=== PATIENT | male | born 1950 | race Caucasian/White ===

== ENCOUNTER 2017-06-30 09:19 | Emergency (ER) | payer OTHER ==
[2017-06-30 09:44] VITALS: BP 129/77
--- NOTE | 2017-06-30 10:21 | UC ---
Throat Pain/Nasal Josh HPI - HPI Summary HPI Summary: 66 y/o female presents to the urgent care c/o sinus pressure, nasal congestion w/ yellowish nasal discharge and B/L ear pressure for the past 3 weeks. Pt reports symptoms started w/ the common cold and for the past 3 days has worsen. Now he has MARTINEZ, sinus pain and a dry cough that is not allowing him to sleep.. Pain is 5/10 w/ severe sinus pressure and +PND. Pt has taken OTC meds to alleviate symptoms w/o any improvement. Pt denies SOB, chest pain, abdominal pain, N/V/D - History of Current Complaint Chief Complaint: UCGeneralIllness Stated Complaint: SINUS ISSUE COUGH EAR PLUGGED Time Seen by Provider: 06/30/17 10:06 Hx Obtained From: Patient Onset/Duration: Lasting Weeks - 3 weeks, Still Present, Worse Since - 4 days Severity: Moderate Pain Intensity: 5 Pain Scale Used: 0-10 Numeric Cough: Nonproductive - dry Associated Signs & Symptoms: Positive: Sinus Discomfort, Nasal Discharge Related History: Seasonal Allergies - Epiglottits Risk Factors Epiglottis Risk Factors: Negative - Allergies/Home Medications Allergies/Adverse Reactions: Allergies Allergy/AdvReac Type Severity Reaction Status Date / Time quinine Allergy Rash Verified 06/30/17 09:39 PMH/Surg Hx/FS Hx/Imm Hx Previously Healthy: Yes - Pt denies PMHX - Surgical History Surgical History: Yes Surgery Procedure, Year, and Place: R eye detached retina surgery - Family History Known Family History: Positive: Cardiac Disease - Social History Occupation: Employed Full-time Lives: With Family Alcohol Use: Occasionally Substance Use Type: None Smoking Status (MU): Never Smoked Tobacco Review of Systems Constitutional: Negative Skin: Negative Eyes: Negative ENT: Ear Ache - B/L ear pressure, Nasal Discharge, Sinus Congestion, Sinus Pain/ Tenderness Respiratory: Cough - dry Cardiovascular: Negative Gastrointestinal: Negative Genitourinary: Negative Motor: Negative Neurovascular: Negative Musculoskeletal: Negative Neurological: Headache - on and off Is Patient Immunocompromised?: No All Other Systems Reviewed And Are Negative: Yes Physical Exam - Summary Physical Exam Summary: Vitals: reviewed General: Well developed, well-nourished male patient with NAD. Head and face: Normocephalic and atraumatic, Positive tenderness over the frontal and maxillary sinuses.. Eyes: PERRLA, EOMI x 2. Normal conjunctiva. No eye discharge. ENT: Ears and TM with normal limits. Nose: with yellowish discharge and erythematous mucosa. Pharynx with erythema, no exudate. Neck: Supple, no JVD, no carotid bruits and no lymphadenopathy. Lungs: clear, no rales, no rhonchi, no wheezes. CVS: RRR, S1 and S2 present no murmurs or gallops appreciated. Abdomen: soft nontender with positive bowel sounds. Extremities: no edema noted. Neuro: WNL. Skin: warm and dry Triage Information Reviewed: Yes Vital Signs: Initial Vital Signs Temp 98.5 F 06/30/17 09:40 Pulse 61 06/30/17 09:40 Resp 16 06/30/17 09:40 BP 129/77 06/30/17 09:40 Pulse Ox 99 06/30/17 09:40 Throat Pain/Nasal Course/Dx - Course Course Of Treatment: 66 y/o female presents to the urgent care c/o sinus pressure, nasal congestion w/ yellowish nasal discharge and B/L ear pressure for the past 3 weeks. Pt reports symptoms started w/ the common cold and for the past 3 days has worsen. Now he has MARTINEZ, sinus pain and a dry cough that is not allowing him to sleep.. Pain is 5/10 w/ severe sinus pressure and +PND. Pt has taken OTC meds to alleviate symptoms w/o any improvement. Pt denies SOB , chest pain, abdominal pain, N/V/D. Hx obtained. Pt w/ acute bacterial sinusitis on examination. Pt with 3 weeks of symptoms getting worse. Pt Rx Augmentin PO and flonase nasal spray. Tessalon PO for cough. Discharge instructions explained to Pt. Advised to Return to the clinic or PCP if symptoms do not improve.Pt understood and agreed with plan of care. - Differential Dx/Diagnosis Differential Diagnosis/HQI/PQRI: Laryngitis, Mononucleosis, Otitis Media, Pharyngitis, Sinusitis, Tonsillitis, URI Provider Diagnoses: 1- Acute bacterial sinusitis Discharge - Sign-Out/Discharge Documenting (check all that apply): Discharge - Discharge Plan Condition: Stable Disposition: HOME Prescriptions: Amoxicillin/Clavulanate TAB* [Augmentin TAB 875*] 875 mg PO BID #20 tab Benzonatate CAP* [Tessalon 100 MG CAP*] 100 mg PO TID #21 cap Fluticasone NASAL SPRAY 50MCG* [Flonase NASAL SPRAY 50MCG*] 2 spray BOTH NARES DAILY #1 btl Patient Education Materials: Sinusitis (ED) Referrals: Agustina Santoro MD [Primary Care Provider] - 3 Days Additional Instructions: 1- Please increase fluid intake and rest. take full course of antibiotic to avoid resistance 2-Use Flonase as directed to help drain fluid. Also buy saline drops to clear sinuses 3-Take Tessalon tabs PO to alleviates cough. Increase fluid intake, rest and eat well. 4-Return to the clinic or PCP if symptoms do not improve for further management and treatment - Billing Disposition and Condition Condition: STABLE Disposition: HOME
== END 2017-06-30 10:44 | disposition home or self-care (01) ==
LOC: UCEAST 09:19
DX: J34.89 Other specified disorders of nose and nasal sinuses (principal); H93.8X3 Other specified disorders of ear, bilateral; R05 Cough; Z88.8 Allergy status to other drugs, medicaments and biological substances
CPT/HCPCS: 99212; G0463

== ENCOUNTER 2018-05-29 19:32 | Emergency (ER) | payer MEDICARE, OTHER ==
[2018-05-29 19:55] VITALS: BP 117/59
--- NOTE | 2018-05-29 20:41 | UC ---
Throat Pain/Nasal Josh HPI - HPI Summary HPI Summary: 2 days of cough congestion and sore throat - History of Current Complaint Chief Complaint: UCRespiratory Stated Complaint: URI Time Seen by Provider: 05/29/18 20:36 Hx Obtained From: Patient Onset/Duration: Gradual Onset, Lasting Days - 2 Severity: Moderate Pain Intensity: 6 Pain Scale Used: 0-10 Numeric Cough: None Associated Signs & Symptoms: Positive: Negative - Allergies/Home Medications Allergies/Adverse Reactions: Allergies Allergy/AdvReac Type Severity Reaction Status Date / Time quinine Allergy Rash Verified 05/29/18 19:55 Home Medications: Home Medications Aspirin 81 mg CHEW TAB* 81 mg PO DAILY 05/29/18 [History Confirmed 05/29/18] Atorvastatin* [Lipitor 20 MG*] 20 mg PO QPM 05/29/18 [History Confirmed 05/29/18 ] Cyanocobalamin TAB* [Vitamin B12 TAB*] 1,000 mcg PO DAILY 05/29/18 [History Confirmed 05/29/18] Ibuprofen TAB* [Motrin TAB* 400 MG] 400 mg PO Q6H PRN 05/29/18 [History Confirmed 05/29/18] PMH/Surg Hx/FS Hx/Imm Hx Previously Healthy: No Endocrine History: Dyslipidemia - Surgical History Surgical History: Yes Surgery Procedure, Year, and Place: R eye detached retina surgery - Family History Known Family History: Positive: Cardiac Disease, Hypertension - Social History Occupation: Retired Lives: With Family Alcohol Use: Weekly Substance Use Type: None Smoking Status (MU): Never Smoked Tobacco Review of Systems All Other Systems Reviewed And Are Negative: Yes Constitutional: Positive: Chills, Fatigue Skin: Positive: Negative Eyes: Positive: Negative ENT: Positive: Sore Throat, Sinus Congestion, Sinus Pain/Tenderness Respiratory: Positive: Negative Cardiovascular: Positive: Negative Gastrointestinal: Positive: Negative Genitourinary: Positive: Negative Motor: Positive: Negative Neurovascular: Positive: Negative Musculoskeletal: Positive: Negative Neurological: Positive: Negative Psychological: Positive: Negative Is Patient Immunocompromised?: Yes Physical Exam Triage Information Reviewed: Yes Appearance: Well-Appearing, No Pain Distress, Well-Nourished Vital Signs: Initial Vital Signs Temp 98.4 F 05/29/18 19:51 Pulse 71 05/29/18 19:51 Resp 16 05/29/18 19:51 BP 117/59 05/29/18 19:51 Pulse Ox 97 05/29/18 19:51 Vital Signs Reviewed: Yes Eye Exam: Normal Eyes: Positive: Conjunctiva Clear ENT Exam: Normal ENT: Positive: Normal ENT inspection, Hearing grossly normal, Pharyngeal erythema, TMs normal, Uvula midline - red swollen. Negative: Nasal congestion, Tonsillar swelling, Tonsillar exudate, Trismus, Muffled voice, Hoarse voice, Dental tenderness, Sinus tenderness Dental Exam: Normal Neck exam: Normal Neck: Positive: Supple, Nontender, No Lymphadenopathy Respiratory Exam: Normal Respiratory: Positive: Chest non-tender, Lungs clear, Normal breath sounds, No respiratory distress, No accessory muscle use Cardiovascular Exam: Normal Cardiovascular: Positive: RRR, No Murmur, Pulses Normal, Brisk Capillary Refill Musculoskeletal Exam: Normal Musculoskeletal: Positive: Strength Intact, ROM Intact, No Edema Neurological Exam: Normal Neurological: Positive: Alert Psychological Exam: Normal Skin Exam: Normal Throat Pain/Nasal Course/Dx - Course Course Of Treatment: Augmentin, tylenol/ibuprofen, mucinex follow with pcp prn - Differential Dx/Diagnosis Provider Diagnosis: Acute sinus infection Discharge - Sign-Out/Discharge Documenting (check all that apply): Patient Departure All imaging exams completed and their final reports reviewed: No Studies - Discharge Plan Condition: Stable Disposition: HOME Prescriptions: Amoxicillin/Clavulanate TAB* [Augmentin TAB 875*] 875 mg PO BID #19 tab Fluticasone NASAL SPRAY 50MCG* [Flonase NASAL SPRAY 50MCG*] 2 spray BOTH NARES DAILY #1 btl Patient Education Materials: Sinusitis (ED), How to Use Nasal [place] (ED) Referrals: Agustina Santoro MD [Primary Care Provider] - If Needed - Billing Disposition and Condition Condition: STABLE Disposition: Home
[2018-05-29] MEDS ORDERED: Amoxicillin/Clavulanate TAB* 875 MG PO ONE (20:56)
== END 2018-05-29 21:05 | disposition home or self-care (01) ==
LOC: UCEAST 19:32
DX: J01.90 Acute sinusitis, unspecified (principal); J02.9 Acute pharyngitis, unspecified; E78.5 Hyperlipidemia, unspecified; Z79.82 Long term (current) use of aspirin; Z88.8 Allergy status to other drugs, medicaments and biological substances
CPT/HCPCS: 99212; A9270-GY; G0463

== ENCOUNTER 2019-03-07 07:59 | Emergency (ER) | payer MEDICARE, OTHER ==
--- OUTSIDE RECORDS SUMMARY | 2019-03-07 08:03 | XMS REPORT | Continuity of Care Document ---
:1950 External Reference #:[id number] Author Name Christa Yun M.D. Address [address] [place] [address] Care Team Providers Name Role Phone Agustina Verduzco M.D. 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 Medicine Problems Description No Information Available Social History Type Date Description Comments Sex Unknown Tobacco Use Start: Unknown Never Smoked Cigarettes Smoking Status Reviewed: 01/17/19 Never Smoked Cigarettes ETOH Use Occassional Social Drinker Recreational Drug Use Denies Drug Use Tobacco Use Start: Unknown Patient has never smoked Allergies, Adverse Reactions, Alerts Active Allergies Reaction Severity Comments Date Quinidine 04/04/2018 Inactive Allergies NKDA 04/04/2018 Medications Active Medications SIG Qnty Indications Ordering Date Provider Aspir-Low 1 by mouth every 100tabs Christa Yun 04/13/[address] gianna Pink M.D. Atorvastatin Calcium take 1 tablet by 90tabs Christa Yun 04/13/2018 40mg mouth every Allen Pink Tablets night at bedtime Nitroglycerin 1 tab sl as 25tabs Christa Yun 04/13/2018 0.4mg needed cp as Allen Pink Tablets Sub directed Vitamin B-12 daily Unknown Natural 500mcg Tablets Immunizations Description No Information Available Vital Signs Date Vital Result Comment 01/17/2019 9:42am BP Systolic 130 mmHg BP Diastolic 78 mmHg Heart Rate 68 /min Respiratory Rate 18 /min Height 71 inches 5'11" Weight 184.00 lb O2 % BldC Oximetry 98 % BMI (Body Mass Index) 25.7 kg/m2 BSA (Body Surface Area) 2.04 m2 07/05/2018 11:04am BP Systolic 118 mmHg BP Diastolic 70 mmHg Heart Rate 63 /min Respiratory Rate 20 /min Height 71 inches 5'11" Weight 172.00 lb O2 % BldC Oximetry 97 % BMI (Body Mass Index) 24.0 kg/m2 BSA (Body Surface Area) 1.98 m2 Results Test Acquired Date Facility Test Result H/L Range Note Lipid Panel 01/11/2019 [facility] Cholesterol 167 mg/dL 120-200 Triglycerides 40 mg/dL 0-149 HDL Cholesterol 75 mg/dL High 40-60 Chol/HDL Ratio 2.2 <=4.9 1 LDL Direct 85 mg/dL 0-99 VLDL Calculated 8 Hepatic Funct Panel 01/11/2019 [facility] T Protein 6.3 gm/dL Low 6.4-8.2 Albumin 4.2 gm/dL 3.2-4.6 T Bili 1.1 mg/dL 0.0-1.2 Direct Bili 0.5 mg/dL High 0.0-0.3 Alk Phos 61 U/L 40-150 Alt (SGPT) 15 U/L 0-55 Ast (Sgot) 17 U/L 5-37 Basic Metabolic Panel 01/11/2019 [facility] Sodium 142 mmol/L 136-145 Potassium 4.6 mmol/L 3.5-5.2 Chloride 107 mmol/L 100-108 Co2 26 mmol/L 21-32 Glucose 83 mg/dL 70-100 BUN 19 mg/dL 7-21 Creatinine 1.0 mg/dL 0.6-1.3 2 Calcium 9.1 mg/dL 8.5-10.8 GFR >60 1 Cholesterol/HDL Ratio Interpretation Risk : 1/2 Avg Avg 2x Avg 3x Avg Male : 3.43 4.97 9.50 23.99 Female : 3.27 4.44 7.05 11.04 2 Normal Kidney Function or Mild Disease - GFR >OR= 60 Chronic Kidney Disease - GFR 15-59 Renal Failure - GFR < 15 GFR not calculated on patients under 18 years of age. Procedures Date Code Description Status 01/17/2019 71591 Electrocardiogram Complete Completed Medical Devices Description No Information Available Encounters Type Date Location Provider Dx Diagnosis Office Visit 01/17/2019 Christa Velarde, I34.0 Nonrheumatic mitral 9:45a M.D. (valve) insufficiency E78.5 Hyperlipidemia, unspecified R94.31 Abnormal electrocardiogram [ECG] [EKG] I20.9 Angina pectoris, unspecified Assessments Date Code Description Provider 01/17/2019 I34.0 Nonrheumatic mitral (valve) insufficiency Christa Yun M.D. 01/17/2019 E78.5 Hyperlipidemia, unspecified Christa Yun M.D. 01/17/2019 R94.31 Abnormal electrocardiogram [ECG] [EKG] Christa Yun M.D. 01/17/2019 I20.9 Angina pectoris, unspecified Christa Yun M.D. Plan of Treatment Future Appointment(s):07/25/2019 10:30 am - Christa Yun M.D. at [id number] - Christa Yun M.D.I34.0 Nonrheumatic mitral (valve) rxkkqsdlyatstA09.5 Hyperlipidemia, oeotbgofigjX11.31 Abnormal electrocardiogram [ECG] [EKG]I20.9 Angina pectoris, unspecifiedRecommendations:1.I had the opportunity to go over and reviewed today's clinical assessment. We discussed history, clinical symptoms, physical examination findings in general and pertinent to patient's cardiac problems in particular. Interval available laboratory data, cardiac specific diagnostic studies were reviewed as well. Pertinent patient's specific history, symptoms and interval changes/progress were inquired in detail. Based on this clinical information, observations and physical examination findings puttogether patient seems to be doing well. 2.I also reviewed all available interval laboratory data, discussed patient's specific and pertinent results in detail. 3.Recognizing anginal symptoms, the proper use of nitroglycerin & the need to seek medical help in case of chest pain unresolving with nitroglycerin were emphasized with the patient. The patient was provided with a script for nitroglycerin. 4.. I reviewed his previous cardiac catheterization , coronary angiographic findings and its clinical significance with him. Educated recognizing change in symptoms, acceleration of angina, proper usage of sublingual nitroglycerin and seeking prompt medical help. 5. Patients last available lipid profile values reviewed. Total cholesterol, HDLc, LDLc and TRG's are quite satisfactory and at target goal . Continuation of present lipid lowering medical therapy along with dietary changes with total reduced calories/ low in saturated fats / trans fats / low in chol (300mg) as per NCEP/ AHA/ACC guidelines is recommended. I also reviewed current lipids meds, dosing and side effects. Requested to have Lipid profile, LFT's at intervals of 4-6months. 6. I thoroughly educated and informed patient, conventional risk factors and its relationship to development of atherosclerotic disease process and clinical events such as angina pectoris, acute ischemic syndromes ( like acute [place]/ sudden cardiacdeath) , progressive peripheral vascular disease and neurovascular events ( such as TIA/ stroke- CVA). Focusing on modifiable risk factors, and aggressively pursuing with both lifestyle modification and available pharmacological therapies. - Optimal control of hypertension, recent guidelines getting systolic blood pressures around 120 and diastolic around 70 mmHg. - Optimal management of hyperlipidemia, getting LDL below 100, possibly even lower and improvement HDL and triglyceridesless than 150 mg per dL. - Moderate regular physical activity, maintaining a healthy weight around BMI of 25. - glycemic control, hemoglobin A1c less than 7 those who have diabetes mellitus.Educated to recognize clinical symptoms of ischemic heart disease, including presentation of typical anginapectoris, atypical angina, ischemic equivalent symptoms such as unexplained dyspnea with exertion/ fatigue and decreased functional capacity. Furthermore in some cases even sudden cardiac . Provided educational brochures to help understand, recognize symptoms and seeking prompt medical help for prompt evaluation and concurrent treatment. 7.Follow up care with us in 6-8 months. Functional Status Description No Information Available Mental Status Description No Information Available Referrals Description No Information Available
--- OUTSIDE RECORDS SUMMARY | 2019-03-07 08:03 | XMS REPORT | Continuity of Care Document ---
:1950 External Reference #:[id number] Author Name Kuldeep Vargas MD Address [address] [place] [address] Care Team Providers Name Role Phone Agustina Verduzco M.D. 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 Benign prostatic hypertrophy without outflow Kuldeep Vargas MD Onset: obstruction Nocturia Kuldeep Vargas MD Onset: 11/25/2015 Delay when starting to pass urine Kuldeep Vargas MD Onset: 11/25/2015 Social History Type Date Description Comments Sex Unknown Tobacco Use Reviewed: 07/12/17 Never Smoked Cigarettes Smoking Status Reviewed: 01/18/18 Never Smoked Cigarettes ETOH Use Occ Alcohol Intake Allergies, Adverse Reactions, Alerts Active Allergies Reaction Severity Comments Date Quinine tongue and throat swelling 06/07/2006 Medications Active Medications SIG Qnty Indications Ordering Provider Date Ibuprofen as needed for Unknown 400mg Tablets pain Atorvastatin Calcium Godishala, Christa, 40mg M.D. Tablets Vitamin B-12 ER 1 by mouth every Unknown 1000mcg day Tablets ER Aspir-Low 1 by mouth every Unknown 81mg Tablets DR day Immunizations CPT Code Status Date Vaccine Lot # [id number] Given 01/03/2014 Influenza Vaccine (Fluzone) Administered Age 3 And Older 52629 Given 06/21/2012 Zoster Shingles Vaccine For Subcutaneous Injection 62871 Given 12/10/2010 Tetanus, Diphtheria Toxoids/Acellular Pertussis Vaccine 7 [place] > [address] Given 07/18/2004 Td Toxoids Adsorbed For Use 7Yrs Or Older For Intramuscular Use Vital Signs Date Vital Result Comment 02/20/2019 8:45am Height 71 inches 5'11" Weight 180.00 lb Weight 81.648 kg BMI (Body Mass Index) 25.1 kg/m2 BP Systolic 114 mmHg BP Diastolic 68 mmHg Heart Rate 70 /min Respiratory Rate 16 /min 08/10/2018 8:48am Height 71 inches 5'11" Weight 176.00 lb Weight 79.834 kg BMI (Body Mass Index) 24.5 kg/m2 BP Systolic 137 mmHg BP Diastolic 81 mmHg Heart Rate 58 /min Results Test Acquired Date Facility Test Result H/L Range Note 230 Ua Routine 02/20/2019 [facility] Ua Glucose Negative REF TO DR ADDRESS ON ORDER FOR (016)- - Ua Protein Negative Ua Nitrite Negative Ua Leuko Negative Ua Blood Negative Ua Color Not Entered Ua Ketones Negative Ua Clarity Not Entered Ua Specific [place] 1.025 1.003-1.030 Ua PH 7.0 5.0-7.5 Ua Bilirubin Negative Ua Urobilinogen 0.2 E.U./dL 0.0-1.0 Laboratory test 02/14/2019 [employer] Total Psa 2.20 ng/mL 0.00-4.00 finding [address] [place] [address] [phone] Procedures Description No Information Available Medical Devices Description No Information Available Encounters Type Date Location Provider Dx Diagnosis Office Visit 02/20/2019 [facility]/ Poonam Reinoso D40.0 Neoplasm of 9:00a Urology MD Sam uncertain behavior of prostate N40.1 Benign prostatic hyperplasia with lower urinary tract symp R35.1 Nocturia Assessments Date Code Description Provider 02/20/2019 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 Kuldeep Vargas MD 02/20/2019 N40.1 Benign prostatic hyperplasia with lower Kuldeep Vargas MD urinary tract symptoms 02/20/2019 R35.1 Nocturia Kuldeep Vargas MD 02/14/2019 N40.1 Benign prostatic hyperplasia with lower [facility] Nurse urinary tract symptoms 02/14/2019 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 [id number]/02/2019 8:30 am - [facility] [id number]/09/2019 - Kuldeep Vargas, MD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New Labs: PSA Total, Ordered: 02/20/19Comments:SRINI today, large prostate but anodular. PSA is similar to several years ago. Continue q6mo evaluation.N40.1 Benign prostatic hyperplasia with lower urinary tract symptomsComments:BPH on SRINI. Limited obstructive urinary symptoms. We discussed Finasteride therapy as option, patient preferring to avoid medication at this time.R35.1 NocturiaComments:Mild nocturia. Neg u/a today.AllFollow up:6mo w/PA, PSA prior Functional Status Description No Information Available Mental Status Description No Information Available Referrals Description No Information Available
--- OUTSIDE RECORDS SUMMARY | 2019-03-07 08:03 | XMS REPORT | Continuity of Care Document ---
:1950 External Reference #:[id number] Author Name Agustina Verduzco MD Address [address] [place] [id number] Problems Description No Active Problems Social History Type Date Description Comments Sex Unknown Tobacco Use Start: Unknown Never Smoked Cigarettes Tobacco Use Start: Unknown Patient has never smoked Smoking Status Reviewed: 01/23/19 Patient has never smoked Enjoy Exercising Enjoys Exercising BICYCLES Allergies, Adverse Reactions, Alerts Active Allergies Reaction Severity Comments Date Quinine 06/07/2006 Medications Active Medications SIG Qnty Indications Ordering Provider Date Atorvastatin Calcium take 1 tablet 90tabs E78.00 Agustina Verduzco 2018 40mg every night at [facility] Tablets bedtime Aspirin 1 by mouth every 90tabs Agustina Verduzco 05/03/[address] gianna Torrez MD Vitamin B-12 1 by mouth every D51.9 Agustina Verduzco 01/30/2018 1000mcg gianna Torrez MD Tablets Shingrix 2 shot series 2units Z00.00 Agustina Verduzco 07/28/2017 50mcg Suspension MD [facility] Rec Immunizations CPT Code Status Date Vaccine Lot # [id number] Given 01/23/2019 Influenza Vac, Quadrivalent, Split, 0.5mL Dosage, Im Use 17560 Given 01/25/2018 Prevnar 13 Pneumococal Conjugate Vaccine [id number] 19676 Given 01/04/2018 Influenza Vac, Quadrivalent, Split, 0.5mL Dosage, [id number] Im Use Q2038 Given 01/03/2014 Fluzone Trivalent Immunization [id number] 91639 Given 06/21/2012 Zoster (Zostavax) [id number] 39716 Given 12/10/2010 Tdap (Adacel) Ages 7 And Above Only [id number] Given 07/18/2004 Immunization Td 7 Yrs Or Older 96644 Refused 06/24/2016 Tdap (Adacel) Ages 7 And Above Only [id number] Refused 04/24/2016 Influenza Vac, Quadrivalent, Split, 0.5mL Dosage, Im Use Vital Signs Date Vital Result Comment 01/23/2019 2:27pm Weight 180.00 lb Heart Rate 76 /min BP Systolic 124 mmHg BP Diastolic 64 mmHg Height 71 inches 5'11" BMI (Body Mass Index) 25.1 kg/m2 04/07/2018 10:09am Weight 172.50 lb Heart Rate 81 /min BP Systolic 126 mmHg BP Diastolic 72 mmHg Height 71 inches 5'11" BMI (Body Mass Index) 24.1 kg/m2 Results Description No Information Available Procedures Description No Information Available Medical Devices Description No Information Available Encounters Description No Information Available Assessments Date Code Description Provider 01/23/2019 Z00.00 Encounter for general adult medical Agustina Verduzco MD examination without abnormal findings 01/23/2019 D51.9 Vitamin B12 deficiency anemia, unspecified Agustina Verduzco MD 01/23/2019 R25.1 Tremor, unspecified Agustina Verduzco MD 01/23/2019 E78.00 Pure hypercholesterolemia, allisonified Agustina Verduzco MD 01/23/2019 Z13.31 Encounter for screening for depression Agustina Verduzco MD 01/23/2019 Z68.25 Body mass index (BMI) 25.0-25.9, adult Agustina Verduzco MD Plan of Treatment No Information Available Functional Status Description No Information Available Mental Status Description No Information Available Referrals Description No Information Available
--- OUTSIDE RECORDS SUMMARY | 2019-03-07 08:03 | XMS REPORT | Continuity of Care Document ---
:1950 Author Organization [facility] Care Team Providers Name Role Phone JOSE D NAJERA Admitting Physician JOSE D NAJERA Attending Physician OSKAR NARANJO Primary Care Physician Allergies and Intolerances No Allergy Data in the System Medications No Known Medications Medications At Time Of Discharge No data in the system Problems No Data in the system Procedures No data in the system Results Laboratory Results Order: BASIC METABOLIC PANEL Specimen Source: Body Site: Legend: (G,H) = High, (GG,HH,CH,#H) = Above High Threshold, ( #,L) = Low, (##,CL,#L,LL) = Below Low Threshold, (C,CC,CA,#A,A) = Abnormal LOINC Test Result Flag Range Units Date 2951-2 1Sodium SerPl-sCnc 142 136-145 mmol/L 01/11/2019 08:06 2823-3 1Potassium SerPl-sCnc 4.6 3.5-5.2 mmol/L 01/11/2019 08:06 5-0 1Chloride SerPl-sCnc 107 100-108 mmol/L 01/11/2019 08:06 8-9 1CO2 SerPl-sCnc 26 21-32 mmol/L 01/11/2019 08:06 2345-7 1Glucose SerPl-mCnc 83 70-100 mg/dL 01/11/2019 08:06 3094-0 1BUN SerPl-mCnc 19 7-21 mg/dL 01/11/2019 08:06 2160-0 1Creat SerPl-mCnc 1.0 0.6-1.3 mg/dL 01/11/2019 08:06 Interpretive Sravanthi: 1Normal Kidney Function or Mild Disease - GFR >OR= 60 Chronic Kidney Disease - GFR 15-59 Renal Failure - GFR < 15 GFR not calculated on patients under 18 years of age. Calculated (estimated) GFR is based on the MDRD Study equation, which assumes a steady state for creatinine. Estimated GFR may not be appropriate for medication dosing. 64059-7 1Ca-I SerPl-mCnc 9.1 8.5-10.8 mg/dL 01/11/2019 08:06 84158-2 1GFR/BSA.pred SerPl-ArVRat >60 01/11/2019 08:06 Performing Lab Footnotes:[facility] - [id number] - [address] [place] [address] ROLY Manning [id number] Order: HEPATIC FUNCT PANEL Specimen Source: Body Site: Legend: (G,H) = High, (GG,HH,CH,#H) = Above High Threshold, (#,L) = Low, (##,CL,#L,LL) = Below Low Threshold, (C,CC,CA,#A,A) = Abnormal LOINC Test Result Flag Range Units Date 2884-04 1Prot SerPl-mCnc 6.3 L 6.4-8.2 gm/dL 01/11/2019 08:06 1751-7 1Albumin SerPl-mCnc 4.2 3.2-4.6 gm/dL 01/11/2019 08:06 71623-4 1Bilirub Bld-mCnc 1.1 0.0-1.2 mg/dL 01/11/2019 08:06 1968-7 1Bilirub Direct SerPl-mCnc 0.5 H 0.0-0.3 mg/dL 01/11/2019 08:06 6768-6 1ALP SerPl-cCnc 61 40-150 U/L 01/11/2019 08:06 1742-6 1ALT SerPl-cCnc 15 0-55 U/L 01/11/2019 08:06 1920-8 1AST SerPl-cCnc 17 5-37 U/L 01/11/2019 08:06 Performing Lab Footnotes:[facility] - [id number] - [address] [place] [address] ROLY CAMPBELL Order: LIPID PANEL Specimen Source: Body Site: Legend: (G,H) = High, ( GG,HH,CH,#H) = Above High Threshold, (#,L) = Low, (##,CL,#L,LL) = Below Low Threshold, (C,CC,CA,#A,A) = Abnormal LOINC Test Result Flag Range Units Date 2092-05 1Cholest SerPl-mCnc 167 120-200 mg/dL 01/11/2019 08:06 2571-8 1Trigl SerPl-mCnc 40 0-149 mg/dL 01/11/2019 08:06 2085-9 1HDLc SerPl-mCnc 75 H 40-60 mg/dL 01/11/2019 08:06 9830-1 1Cholest/HDLc SerPl-mRto 2.2 <=4.9 01/11/2019 08:06 Interpretive Sravanthi: 1Cholesterol/HDL Ratio Interpretation Risk : 1/2 Avg Avg 2x Avg 3x Avg Male : 3.43 4.97 9.50 23.99 Female : 3.27 4.44 7.05 11.04 38281-6 1LDLc SerPl Direct Assay-mCnc 85 0-99 mg/dL 01/11/2019 08:06 45136-6 1VLDLc SerPl Calc-mCnc 8 01/11/2019 08:06 Performing Lab Footnotes:[facility] - [id number] - [address] [place] [address] ROLY CAMPBELL Social History Code Code System Social History Observation Description Dates Observed 450676765 SNOMED CT Current Smoking Status Never smoker UNK AdministrativeGender Sex Assigned At Unknown Vital Signs No data in the system Goals Section No data in the system Health Concerns No data in the systemEncounter Diagnosis Date Code Code System Diagnosis Status I45.2 ICD10 [facility] Active Advance Directives *RHIO - CONSENT IS YES Directive Type Effective Date Segment Producer Notes Supporting Document Name Address Phone No Directive Type 04/04/2018 3:22:50 Not Specified Not Specified Not Specified None No specified PM Encounters Encounter Diagnosis Location Date [facility] 01/11/2019 Family History Family history not obtained Functional Status No data in the system Immunizations No data in the system Medical Equipment No data in the system Mental Status No data in the system Assessment and Plan Assessments No data in the systemPlan Of Treatment No data in the systemPending Tests No data in the system Hospital Discharge Instructions No data in the system Reason for Visit No data in the system
[2019-03-07 08:08] VITALS: BP 133/84
--- NOTE | 2019-03-07 08:24 | UC ---
Respiratory Complaint HPI - HPI Summary HPI Summary: COUGH, CHEST CONGESTION, EAR PAIN OVER THE PAST 3 WEEKS. PATIENT STATES HE IS FEELING WORSE NOW WITH LOW-GRADE FEVER AND SINUS PRESSURE. NO NAUSEA/VOMITING. - History of Current Complaint Chief Complaint: UCRespiratory Stated Complaint: URI Time Seen by Provider: 03/07/19 08:03 Hx Obtained From: Patient Onset/Duration: Gradual Onset, Lasting Weeks, Still Present Timing: Constant Severity Initially: Moderate Severity Currently: Moderate Pain Intensity: 6 Pain Scale Used: 0-10 Numeric Character: Cough: Nonproductive Aggravating Factors: Nothing Alleviating Factors: Nothing Associated Signs And Symptoms: Positive: Fever, URI, Nasal Congestion. Negative : Wheezing - Allergies/Home Medications Allergies/Adverse Reactions: Allergies Allergy/AdvReac Type Severity Reaction Status Date / Time quinine Allergy Rash Verified 03/07/19 08:08 PMH/Surg Hx/FS Hx/Imm Hx - Additional Past Medical History Additional PMH: RETINAL DETACHMENT Endocrine History: Dyslipidemia - Surgical History Surgical History: Yes Surgery Procedure, Year, and Place: R eye detached retina surgery - Family History Known Family History: Positive: Cardiac Disease, Hypertension - Social History Alcohol Use: Weekly Substance Use Type: None Smoking Status (MU): Never Smoked Tobacco Review of Systems All Other Systems Reviewed And Are Negative: Yes Constitutional: Positive: Fever, Fatigue ENT: Positive: Ear Ache, Nasal Discharge, Sinus Congestion Respiratory: Positive: Cough Cardiovascular: Positive: Negative Gastrointestinal: Positive: Negative Physical Exam Triage Information Reviewed: Yes Appearance: Well-Appearing, No Pain Distress, Well-Nourished Vital Signs: Initial Vital Signs Temp 97.2 F 03/07/19 08:04 Pulse 66 03/07/19 08:04 Resp 18 03/07/19 08:04 BP 133/84 03/07/19 08:04 Pulse Ox 97 03/07/19 08:04 Eyes: Positive: Conjunctiva Clear ENT: Positive: Hearing grossly normal, Pharynx normal, TMs normal Neck: Positive: Supple, Nontender, No Lymphadenopathy Respiratory Exam: Normal Cardiovascular Exam: Normal Abdomen Description: Positive: Soft Musculoskeletal: Positive: No Edema Neurological: Positive: Alert Psychological: Positive: Age Appropriate Behavior Skin: Negative: Rashes Respiratory Course/Dx - Course Course Of Treatment: SYMPTOMS MAY BE VIRALLY MEDIATED BUT GIVEN THAT THEY HAVE BEEN PERSISTENT OVER THE PAST FEW WEEKS AND PATIENT FEELS HE IS WORSENING WILL GO AHEAD AND COVER WITH ANTIBIOTICS. PATIENT STATES AUGMENTIN WORKS WELL FOR HIM SO WILL USE THIS TODAY. FOLLOW-UP IF NOT IMPROVING EXPECTED. - Differential Dx/Diagnosis Provider Diagnosis: Acute bronchitis Discharge ED - Sign-Out/Discharge Documenting (check all that apply): Patient Departure All imaging exams completed and their final reports reviewed: No Studies - Discharge Plan Condition: Stable Disposition: HOME Prescriptions: Amoxicillin/Clavulanate TAB* [Augmentin TAB 875*] 875 mg PO BID #20 tab predniSONE TAB* [Deltasone 20 MG TAB*] 40 mg PO DAILY #10 tab Patient Education Materials: Acute Bronchitis (ED) Referrals: Agustina Santoro MD [Primary Care Provider] - Additional Instructions: YOUR SYMPTOMS MAY BE VIRALLY MEDIATED BUT GIVEN THE LENGTH OF TIME YOU HAVE BEEN ILL WE WILL COVER YOU WITH ANTIBIOTICS. IF YOU START THE MEDICINE BE SURE TO TAKE IT FOR THE FULL COURSE. REST, HYDRATE, OTC MEDS NEEDED. WILL ALSO TREAT WITH PREDNISONE TO HELP WITH AIRWAY INFLAMMATION. SEEK FOLLOW-UP WITH YOUR PCP IF YOU ARE NOT IMPROVING OVER THE NEXT 1-2 WEEKS. USE OTC AFRIN FOR NASAL CONGESTION. 2 SPRAYS IN EACH NOSTRIL TWICE DAILY NEEDED. DO NOT USE FOR MORE THAN 3-4 DAYS IN A ROW TO PREVENT DEVELOPING REBOUND CONGESTION. - Billing Disposition and Condition Condition: STABLE Disposition: Home
== END 2019-03-07 08:36 | disposition home or self-care (01) ==
LOC: UCEAST 07:59
DX: J20.9 Acute bronchitis, unspecified (principal); H92.09 Otalgia, unspecified ear; Z88.8 Allergy status to other drugs, medicaments and biological substances
CPT/HCPCS: 99212; G0463